=== PATIENT | female | born 1930 | race Caucasian/White ===

== ENCOUNTER → 2017-02-28 | Outpatient (CLI) | payer MEDICARE | END | disposition home or self-care (01) | LOC: PCVCCLINIC 15:21 | PROVIDERS: ATTEND Nuclear Medicine Nuclear Cardiology | DX: I10 Essential (primary) hypertension (principal); I73.9 Peripheral vascular disease, unspecified; I70.1 Atherosclerosis of renal artery; G20 Parkinson's disease | CPT/HCPCS: G0463 ==

== ENCOUNTER → 2017-03-03 | Outpatient (CLI) | payer MEDICARE ==
[~2017-03-03] MED LIST: DIAZEPAM 10 MG TABLET. ONE; EPTIFIBATIDE BOLUS 2,000 MCG/ML 10ML VIAL. IV ONE; HEPARIN SODIUM 5,000 UNIT/ML VIAL for PCVC. ONE; IODIXANOL 270 MG/ML 100 ML VIAL. ONE; IOHEXOL 300 MG/ML 100ML VIAL. ONE; IV NORMAL SALINE 1000ML BAG 1,000 ML ONE; IV NORMAL SALINE 500ML BAG 0 ML ONE; IV NORMAL SALINE 50ML 0 ML ONE; LIDOCAINE 1% Multi-Dose 20 ML VIAL. ONE; MIDAZOLAM HCL/PF 2 MG/2 ML VIAL. ONE; ceFAZolin SODIUM 1 GM VIAL ONE; fentaNYL PF VIAL 100 MCG/2 ML VIAL ONE; hydrALAZINE 20 MG/ML VIAL. ONE
--- NOTE | 2017-03-03 14:16 | PCVCINTER ---
EXAM: 1. AORTOGRAM AND BILATERAL LOWER EXTREMITY RUNOFF ANGIOGRAM 2. BILATERAL RENAL ANGIOGRAPHY 3. COMPLETE MESENTERIC ANGIOGRAPHY. INDICATION: Peripheral arterial disease. Recent CT examination suggesting significant renal and mesenteric stenosis. Mesenteric atherosclerosis. Bilateral calf claudication. Hypertension. Renal atherosclerosis. PROCEDURE: Procedure and risks of angiography intervention is appropriate including limb loss stroke and were discussed with the patient's family and consent obtained. The patient's right groin was prepped abnormal sterile fashion. IV conscious sedation was used to procedure with appropriate monitoring from 11:00 AM through 12:30 PM. Ultrasound was used to interrogate the right groin and showed the right common femoral artery to be patent. A permanent spot film was obtained. Under ultrasound guidance access into the right common femoral artery was obtained and a 5 [place] sheath was placed. Through this a 5 [place] flush catheter was placed into the abdominal aorta at the level of the renal arteries and AP aortogram was performed. Catheter was positioned at the aortic bifurcation and both oblique views of the pelvis were obtained. Catheter was positioned into the right external iliac artery and right leg runoff angiography was performed. Catheter was exchanged for a visceral catheter was placed into the right renal arteries and right renal angiograms obtained. Catheter was placed into the the left renal arteries and left renal angiograms were obtained. Catheter was placed into the celiac axis and celiac angiogram obtained. Catheter placed in the superior mesenteric artery and SMA angiography obtained. Catheter was placed in the inferior mesenteric artery and DELVIN angiogram obtained. Catheter was advanced to the level of the left external iliac artery and left leg runoff angiography was obtained. Catheters and wires removed. Sheath was removed and hemostasis obtained using the Exoseal device. No immediate complications. FINDINGS: Aortogram: There is one right and 2 left renal arteries. Ulcerated plaque upper infrarenal abdominal aorta does not cause significant stenosis or dilatation. Pelvis: Mild scattered plaque in the right and left common and external iliac arteries without significant stenosis. Both internal iliac arteries are patent. The right and left common femoral and profunda femoral arteries show adequate patency. Right renal artery: Mild scattered plaque proximal vessel does not cause significant stenosis. No branch vessel stenosis. Left renal artery: 2 left renal arteries both showing mild plaque in the proximal portion but no evidence of flow-limiting stenosis. Celiac axis: Mild scattered plaque proximal vessel does not cause significant stenosis. Distal branches are patent. Superior mesenteric artery: Mild/moderate plaque proximal vessel does not cause significant stenosis. Mid and distal branches are patent. No abnormal collaterals. Inferior mesenteric artery: 70% focal stenosis proximal vessel. Mid and distal branches are patent. Right leg: Diffuse disease superior mesenteric artery with 80% stenosis distal vessel. 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 Collaterals refill the anterior tibial artery which runs off into the foot. A small peroneal artery also refills. The posterior tibial artery is occluded. Left leg: Several areas of moderate stenosis throughout the proximal and mid superficial femoral artery. There is segmental occlusion in the distal superficial femoral artery and subtotal occlusion the upper popliteal artery. The mid and distal popliteal artery is somewhat small in size without high-grade stenosis. The anterior tibial artery is continuous throughout its length. The peroneal artery and posterior tibial arteries are occluded. IMPRESSION: No high-grade renal artery stenosis as reviewed above. 70% stenosis at the origin of a small inferior mesenteric artery. The celiac axis and superior mesenteric artery have mild disease proximally but no evidence of flow-limiting stenosis. Occlusion of the right popliteal artery in the distal left superficial femoral artery and upper popliteal artery. Occlusion of the right and left posterior tibial arteries in the left peroneal artery. No further follow-up with me is scheduled at this time. I instructed the patient and her family on a detailed walking program. They were instructed to contact me in the future if patient develops rest pain or nonhealing ulcers. LOC:[id number]
== END | disposition home or self-care (01) ==
LOC: PCVCINTER 09:18
PROVIDERS: ATTEND Nuclear Medicine Nuclear Cardiology
DX: I70.213 Atherosclerosis of native arteries of extremities with intermittent claudication, bilateral legs (principal); K55.1 Chronic vascular disorders of intestine; I70.1 Atherosclerosis of renal artery
CPT/HCPCS: 36245; 36246; 36252; 75716; 75726; 76937; 99152; 99153; C1751; C1760; C1769; C1894; J0360; J1644; J3010; J7030; Q9967; J0690; J1327; J2250; J7040